=== PATIENT | female | born 2000 | race African-American/Black ===

== ENCOUNTER 2020-04-22 17:18 | Emergency (ER) | payer MEDICAID ==
[~2020-04-22] VITALS: Ht 177.8 cm; Wt 162.4 kg
[2020-04-22 17:23] VITALS: BP_SYST 120; BP_SYST 127; BP_DIAS 65; BP_DIAS 69
--- NOTE | 2020-04-22 17:45 | NUR ---
C/O LOWER AB PAIN WITH NAUSEA X 2 WEEKS. PT REPORTS VAGINAL BLEEDING X 4 DAYS. DENIES DYSURIA. APPROX 13-14 WEEKS . PT CANT RECALL LMP. G3, 1 PREVIOUS , 1 LIVING CHILD. PT REPORTS SHE HAS BEEN SEEN AT [facility] 3 TIMES WITHIN PAST MONTH FOR ULTRASOUNDS AND SIMILAR S/S. PT STATES SHE DOES NOT KNOW THE US RESULTS BUT STATES "THEY DO NOTHING FOR ME". PT REPORTS BEING SEEN BY MULTIPLE DIFFERENT OBGYNS. ALSO C/O LEFT LOWER WISDOM TOOTH PAIN X 3 WEEKS. STATES SHE HAS NOT SEEN A DENTIST. GUM DOES NOT APPEAR TO BE INFLAMMED UPON EXAMINATION. MED HX:ASTHMA
--- NOTE | 2020-04-22 18:08 | NUR ---
LAB AT BEDSIDE
--- NOTE | 2020-04-22 18:24 | NUR ---
PT STATES SHE CURRENTLY RESIDES AT [facility]
--- NOTE | 2020-04-22 18:30 | NUR ---
PT SIGNED CONSENT FORM FOR REQUEST TO OBTAIN MEDICAL RECORDS FROM [facility]
[2020-04-22] MEDS ORDERED: ACETAMINOPHEN 325 MG TAB PO ONE (19:05)
--- NOTE | 2020-04-22 19:13 | NUR ---
CHANGE OF SHIFT REPORT RECIEVED FROM FOZIA CLOUD . ASSUMED PT CARE AT THIS TIME.
[2020-04-22 19:29] VITALS: BP 127/65
--- NOTE | 2020-04-22 19:29 | NUR ---
Patient discharged with v/s stable. Written and verbal after care instructions given and explained. Patient verbalized understanding. Ambulatory with steady gait. All questions addressed prior to discharge. Advised to follow up with PMD.
[2020-04-22 19:45] LABS: BASOPHILS % (AUTO) 0.5 % (0.0-2.0); EOSINOPHILS % (AUTO) 0.6 % (0.0-4.0); HEMATOCRIT 39.5 % (36-48); HEMOGLOBIN 12.9 g/dL (12.0-16.0); LYMPHOCYTES # (AUTO) 2.5 K/uL (2.5-16.5); LYMPHOCYTES % (AUTO) 40.2 % (20.5-51.1); MEAN CORPUSCULAR HEMOGLOBIN 28 pg (27-31); MEAN CORPUSCULAR HGB CONC 33 g/dL (33-37); MEAN CORPUSCULAR VOLUME 84.8 fL (80-94); MONOCYTES # (AUTO) 0.3 K/uL (0.8-1.0); MONOCYTES % (AUTO) 5.7 % (1.7-9.3); NEUTROPHILS # (AUTO) 3.2 K/uL (1.8-7.7); PLATELET COUNT (AUTO) 255 K/uL (140-450); RED BLOOD CELL COUNT(AUTO) 4.66 MIL/uL (4.20-5.40); WHITE BLOOD COUNT (AUTO) 6.1 K/uL (4.8-10.8)
== END 2020-04-22 19:30 | disposition home or self-care (01) ==
LOC: MED 17:18
DX: O20.0 Threatened abortion (principal); J45.909 Unspecified asthma, uncomplicated; Z3A.13 13 weeks gestation of pregnancy
CPT/HCPCS: 36415; 81002; 81025; 84702; 85025; 99283